=== PATIENT | female | born 1980 | race African-American/Black ===

== ENCOUNTER 2016-10-20 22:30 | Emergency (ER) | payer SELFPAY ==
[~2016-10-20] VITALS: Ht 170.2 cm; Wt 110.0 kg
[2016-10-21] MEDS ORDERED: SODIUM CHLORIDE 0.9% 1,000 ML IV ONE (02:35)
[2016-10-21 03:00] VITALS: BP 137/64
[2016-10-21 03:13] LABS: PARTIAL THROMBOPLASTIN TIME 28.5 sec (24.0-34.0)
[2016-10-21 03:15] LABS: BASOPHILS % 0.3 % (0.0-2.0); EOSINOPHILS % 1.9 % (0.0-5.0); HEMATOCRIT. 36.9 % (36.0-48.0); MEAN CORPUSCULAR HEMOGLOBIN 27.3 pg (28.0-32.0); MEAN CORPUSCULAR VOLUME 83.8 fL (81.0-99.0); MEAN PLATELET VOLUME 9.5 fl (7.4-10.4); MONOCYTES % 6.4 % (2.0-8.0); NEUTROPHILS % 33.4 % (40.0-76.0); PLATELET 235 x1000/uL (130-400); RED BLOOD CELL COUNT 4.41 mill/uL (4.2-5.4); RED CELL DISTRIBUTION WIDTH 13.6 % (11.6-14.6)
[2016-10-21 03:28] LABS: CARBON DIOXIDE 30 mEq/L (21-32); CHLORIDE 104 mEq/L (98-107)
[2016-10-21 03:30] LABS: B-HCG QUANTITATIVE 167 mIU/mL (<3)
== END 2016-10-21 06:10 | disposition home or self-care (01) ==
LOC: ER 22:30
DX: O46.8X9 Other antepartum hemorrhage, unspecified trimester (principal); O99.019 Anemia complicating pregnancy, unspecified trimester
CPT/HCPCS: 36415; 76830; 76856; 80053; 84702; 85025; 85610; 85730; 86850; 86900; 86901; 96360; 99285; J7030; Z7610